=== PATIENT | female | born 1985 | race Caucasian/White ===

== ENCOUNTER 2016-09-26 16:21 | Emergency (ER) | payer OTHER ==
[~2016-09-26] VITALS: Ht 172.7 cm; Wt 90.7 kg
--- NOTE | ~2016-09-26 | EKG ---
[address] [address] ELECTROCARDIOGRAM REPORT Name: BRUNO HENLEYCIA GUCCI Room #: DEP [facility]#: [id number] Admission: 09/26/16 Attend Phys: Discharge: 09/26/16 Date of : 87 Report #: [id number] THIS REPORT FOR: //name// [facility] ED Test Date: 2016-09-26 Test Time: 16:32:16 Pat Name: SANDRA HENLEY Department: Room: Gender: F Family Practice Doctor: Irina LOPEZ : 1985 Requested By: Nancy Salas Order Number: [id number] MD: Vasquez Haines Measurements Intervals [place] Rate: 96 P: 22 MO: 143 QRS: 62 QRSD: 91 T: -19 QT: 344 QTc: 435 Interpretive Statements Sinus rhythm Borderline repolarization abnormality No previous ECG available for comparison Electronically Signed On 09-28-2016 8:46:20 CDT by Vasquez Haines [email or web address] <ELECTRONICALLY SIGNED> By: Vasquez Haines MD 09/28/16 [id number] 1632 MD SHERI Yates
[~2016-09-26 16:21] MED LIST: BENADRYL25 MG PO; BIRTHCONTROL; FLAGYL500 MG PO; FLONASE 0.05%50 MCG NASAL; IBUPROFEN 600600 M1 PO; KETOCONAZOLE60 GM TP; LIDOCAINE VISC100 M1 MUCOUS MEM; LOTRIMIN30 GM TP; MACROBID 100 M100 M1 PO; MICROGESTIN FE1 EACH; MUCINEX D TABL1 EAC1 PO; NEURONTIN 300300 M1 PO; NOHOMEMEDICATIONS; NORCO 5-325 TA1 EACH PO; PAXIL10 MG PO; PREDNISONE50 MG PO; PRILOSEC 20 MG20 MG PO; PRILOSEC20 MG PO; ULTRAM 50MG TAB50 MG PO; ZOFRAN ODT4 MG PO; ZPAK PO
[2016-09-26] MEDS ORDERED: METFORMIN HCL500 MG PO (16:45)
[2016-09-26 16:52] LABS: ABSOLUTE NEUTROPHILS 7.7 thou/uL (1.4-8.2); BASOPHILS 0.7 % (0.0-2.0); EOSINOPHILS 2.2 % (0.0-3.0); HEMATOCRIT 40.9 % (37.0-47.0); HEMOGLOBIN 13.8 gm/dL (12.0-15.0); LYMPHOCYTES 30.3 % (24.0-44.0); MCH 29.5 pg (26.0-34.0); MCHC 33.6 g/dL (28.0-37.0); MCV 87.7 fL (80.0-100.0); MONOCYTES 5.8 % (1.0-8.0); PLATELET COUNT 200 thou/uL (150-400); RBC 4.67 mil/uL (4.20-5.00); RDW 13.4 % (10.5-14.5); WBC 12.6 thou/uL (4.0-11.0)
[2016-09-26 16:53] LABS: MANUAL DIFF NO
[2016-09-26 16:59] LABS: CALCIUM 9.2 mg/dL (8.5-10.1); CREATININE 0.8 mg/dL (0.6-1.0); POTASSIUM 3.9 mmol/L (3.5-5.1)
[2016-09-26] MEDS ORDERED: NAPROSYN500 MG PO (17:52)
[2016-09-26] MEDS ORDERED: ATIVAN0.5 MG PO (17:52)
[2016-09-26 18:26] VITALS: BP 127/85
== END 2016-09-26 18:27 | disposition home or self-care (01) ==
LOC: ER 16:21
PROVIDERS: Emergency Medicine
DX: R07.9 Chest pain, unspecified (principal); Z88.1 Allergy status to other antibiotic agents

== ENCOUNTER 2016-11-07 12:02 | Emergency (ER) | payer OTHER ==
[~2016-11-07] VITALS: Ht 170.2 cm; Wt 86.2 kg
[~2016-11-07 12:02] MED LIST changes: +ATIVAN0.5 MG PO; +METFORMIN HCL500 MG PO; +NAPROSYN500 MG PO
[2016-11-07 12:17] VITALS: BP 121/73
[2016-11-07] MEDS ORDERED: NAPROSYN500 MG PO (12:36)
[2016-11-07] MEDS ORDERED: DOXYCYCLINE 10100 MG PO (12:36)
== END 2016-11-07 12:36 | disposition home or self-care (01) ==
LOC: ER 12:02
DX: L03.314 Cellulitis of groin (principal); F10.99 Alcohol use, unspecified with unspecified alcohol-induced disorder; Z88.1 Allergy status to other antibiotic agents